=== PATIENT | male | born 1955 | race Caucasian/White ===

== ENCOUNTER 2021-08-20 09:56 | Day surgery (SDC) | payer MEDICARE, OTHER ==
--- NOTE | 2021-08-20 08:06 | HP ---
DATE OF SURGERY: 08/20/2021 HISTORY OF PRESENT ILLNESS: The patient is a 66-year-old with history of polyps. No bloody stools. No pain. Occasional left lower quadrant aches. Family history of sister with colon cancer. Given his history of polyps, he is in need of follow up screening colonoscopy. PAST MEDICAL HISTORY: Hypertension. PAST SURGICAL HISTORY: Knee surgery. Right eye implant. MEDICATIONS: The patient had been on lisinopril but he stopped. He had some constipation. ALLERGIES: NKDA. FAMILY HISTORY: Sister with colon cancer. Hypertension. Lung problems in a sister. SOCIAL HISTORY: No smoking or alcohol abuse. REVIEW OF SYSTEMS: Fourteen systems reviewed. Negative or noncontributory as above and per preadmission questionnaire. PHYSICAL EXAMINATION: GENERAL: No acute distress. HEENT: Sclerae nonicteric. NECK: No JVD. CHEST: Equal excursion, nonlabored breathing. CVS: Regular rate and rhythm. ABDOMEN: Soft. No peritoneal signs. EXTREMITIES: No significant edema. NEURO: Alert, oriented, moving extremities symmetrically. No gross motor deficits noted. RECTAL: Deferred timed to endoscopy exam. PSYCH: Appropriate mood and affect. IMPRESSION: History of polyps. He is in need of follow up screening colonoscopy. I feel he is a candidate. Risks and benefits explained in detail including but not limited to bleeding or infection, risk of bowel injury or perforation possibly requiring open procedure, risk of missed or nondiagnosis or incomplete exam possibly requiring barium enema, other studies or procedures, general risk of anesthesia or sedation, risk of bowel prep but not limited to, consent obtained. Will proceed with colonoscopy under MAC anesthesia as an outpatient given his history of polyps in the past and family history of colon cancer.
[~2021-08-20 09:56] MED LIST: Lactated Ringers 1,000 ML IV ONE; Lactated Ringers 1,000 ML IV SCH
[2021-08-20] MEDS ORDERED: DIPRIVAN 200 MG/20 ML IV ONE (12:00)
[2021-08-20 13:04] VITALS: O2SAT 97
[2021-08-20 13:07] VITALS: BP 120/83; PULSE 76
--- NOTE | 2021-08-21 11:27 | OP ---
SURGERY DATE/TIME: 08/20/2021 1202 PREOPERATIVE DIAGNOSIS: Family history of colon cancer, history of polyps. POSTOPERATIVE DIAGNOSES: 1) Diverticulosis. 2) Small early polyps versus hyperplastic lesion rectum x2. 3) Fair bowel prep. 4) ASA Class II. PROCEDURES: 1) Colonoscopy to cecum. 2) Hot biopsy removal of small early rectal polyps versus hyperplastic lesions x2. SURGEON: Dr. Kj Dutton. ANESTHESIA: MAC. ESTIMATED BLOOD LOSS: Minimal. INDICATIONS: As noted above. Risks and benefits explained in detail but not limited to and consent obtained. DESCRIPTION OF PROCEDURE AND FINDINGS: The patient is taken to the endoscopy room. MAC anesthesia introduced. After official time out and no disagreement with planned procedure, digital rectal exam did not reveal any rectal masses. Video colonoscope inserted and passed up through the slightly tortuous sigmoid, descending, transverse and ascending colon around to the cecum. Appendiceal orifice and valve well visualized, photo documented. Prep overall was fair. In the proximal right colon, the left actually had pretty good prep overall so overall fair prep. Accounting for the right colon, it had a little bit of liquidy semi-solid stool. ASA class II. The scope was slowly and carefully withdrawn over the next eight minutes. Suctioned and irrigating out the right colon as well as possible. No signs of any large polyps, masses or obstructing lesions. He had a few small diverticula in the left colon. Scope pulled back to the rectum. A few small early polyps versus hyperplastic lesions removed with hot biopsy forceps with brief bursts of cautery. Good hemostasis noted. No signs of any large polyps, masses or obstructing lesions. Scope is withdrawn. Findings discussed with the family out in the waiting area. Will await the path results to determine ultimate follow up recommendation.
== END 2021-08-20 13:15 | disposition home or self-care (01) ==
LOC: SDC 09:56
PROVIDERS: ATTEND Surgery
DX: Z09 Encounter for follow-up examination after completed treatment for conditions other than malignant neoplasm (principal); K57.90 Diverticulosis of intestine, part unspecified, without perforation or abscess without bleeding; K62.9 Disease of anus and rectum, unspecified; Z80.0 Family history of malignant neoplasm of digestive organs; Z86.010 Personal history of colon polyps
CPT/HCPCS: 88305; J2704